=== PATIENT | female | born 1980 | race Caucasian/White ===

== ENCOUNTER 2022-01-10 11:15 | Emergency (ER) | payer BC, SELFPAY ==
--- NOTE | ~2022-01-10 | XR_ITS ---
EXAMINATION: XR elbow RT min 3V DATE: 01/10/2022 11:54 INDICATION: Right elbow injury and pain. TECHNIQUE: 4 views of right elbow were obtained. COMPARISON: None. FINDINGS: Bone alignment is normal. No fracture. Joint spaces are well maintained. There is no elbow joint effusion. IMPRESSION: 1. Normal right elbow. Reviewed, dictated and finalized at location A. RON[facility] HE[facility] PHYSICIAN IMPRESSION: 1. Normal right elbow.
[2022-01-10 11:26] VITALS: BP 135/93; PULSE 75; RESP 18; TEMP 36.9; O2SAT 100
--- NOTE | 2022-01-10 13:11 | ED.UPPEXIN ---
HPI - Extremity Injury (Upper) General Chief Complaint: Extremity Injury, Upper Stated Complaint: elbow injury Time Seen by Provider: 01/10/22 11:37 Source: patient Mode of arrival: ambulatory Limitations: no limitations History of Present Illness HPI narrative: This is a 41 year old female that presents to the ER for right elbow injury sustained a couple of weeks ago. Reports she felt pain in the elbow after bowling. Reports then a couple of days after that she hit her elbow on a metal door. Since she has had pain worse with movement and relieved with rest. Reports decreased range of motion due to pain. Denies numbness. Related Data Allergies Allergy/AdvReac Type Severity Reaction Status Date / Time aspirin AdvReac Unknown Verified 01/10/22 11:30 NSAIDS (Non-Steroidal AdvReac Unknown Verified 01/10/22 11:30 Anti-Inflamma Review of Systems Review of Systems: CONSTITUTIONAL: Denies fever MUSCULOSKELETAL: Reports joint pain, and myalgia. NEUROLOGIC: Denies numbness, or weakness. All systems reviewed & are unremarkable except as noted in HPI and below PMFSH Past Medical History Medical History (Updated 01/10/22 @ 13:26 by Melissa Sotelo PA-C) History of depression History of IBS History of migraine Social History Social History (Updated 01/10/22 @ 13:25 by Melissa Sotelo PA-C) Substance use: never Exam Narrative: GENERAL: Well-appearing, well-nourished, and in no acute distress. HEAD: Normocephalic, atraumatic. EYES: EOMI. EXTREMITIES: Normal range of motion. No edema, erythema or obvious deformity. Normal radial pulses. Normal strength in the right upper extremity SKIN: Warm, dry, no rash. NEURO: No focal deficits. Alert and oriented x3. PSYCH: Normal mood and affect Course Vital Signs Vital signs: Vital Signs Temperature 98.5 F 01/10/22 11:26 Pulse Rate 75 01/10/22 11:26 Respiratory Rate 18 01/10/22 11:26 Blood Pressure 135/93 H 01/10/22 11:26 Pulse Oximetry 100 01/10/22 11:26 Temperature 98.5 F 01/10/22 11:26 Pulse Rate 75 01/10/22 11:26 Respiratory Rate 18 01/10/22 11:26 Blood Pressure 135/93 H 01/10/22 11:26 Pulse Oximetry 100 01/10/22 11:26 MDM - Extremity Injury (Upper) MDM Narrative Medical decision making narrative: Patient sent to the emergency department for right elbow pain after an injury a couple weeks ago. She is afebrile and nontoxic-appearing. No erythema, edema or warmth of the arm. She is neurovascularly intact. Right elbow x-ray is normal. Patient was updated on case findings. Placed in a sling for comfort. Instructed to rest, ice and take [id number] pain medication as needed. She is to follow-up with her primary care doctor. She was given warnings to return to the ER Imaging Data Radiologist's impression: ITS Impressions Elbow X-Ray 01/10/22 12:06 IMPRESSION: 1. Normal right elbow. Critical Care Time Critical Care Time Critical Care Time: No Discharge Plan Discharge Clinical Impression: Elbow pain, right Patient Disposition: Home, Self-Care Condition: Stable Instructions: Elbow Sprain (ED) Additional Instructions: Return to the ER if you experience fever, redness and swelling of your arm, weakness, numbness, or any other symptoms that are concerning to you Rest, use ice/heat, take Tylenol as needed for pain as well as muscle relaxer (Flexeril) as needed for pain. Muscle relaxers can make you drowsy, do not drive if you take this Follow up with your primary care doctor Prescriptions: New cyclobenzaprine 10 mg tablet 10 mg PO TID PRN (Reason: muscle spasm) Qty: 10 RF: 0 Follow-up/Referrals: Padilla,MD Zelaya ([place]) [Primary Care Provider] - 3 Days Stand Alone Forms: Work/School Release IP
[2022-01-10 13:49] VITALS: BP 136/89; PULSE 76; RESP 12; TEMP 36.2; O2SAT 97
[2022-01-10 13:52] VITALS: BP 136/89; PULSE 72; RESP 12; TEMP 36.2; O2SAT 97
== END 2022-01-10 13:55 | disposition home or self-care (01) ==
PROVIDERS: Emergency Provider Emergency Medicine; PCP Internal Medicine
DX: S59.901A Unspecified injury of right elbow, initial encounter (principal); K58.9 Irritable bowel syndrome, unspecified; W22.8XXA Striking against or struck by other objects, initial encounter
CPT/HCPCS: 73080; 99283; A4565

== ENCOUNTER → 2022-02-07 13:05 | Outpatient (CLI) | payer BC, SELFPAY ==
--- NOTE | ~2022-02-07 | MR_ITS ---
EXAMINATION: MR elbow RT wo con DATE: 02/07/2022 13:51 INDICATION: Right elbow pain TECHNIQUE: Magnetic resonance imaging (MRI) of the right elbow was performed without intravenous cont rast. Sequences included coronal, axial, and sagittal PD-weighted FS FSE and coronal, axial, and sagi ttal PD-weighted FSE. COMPARISON: None FINDINGS: Osseous/other: Normal alignment. Normal marrow signal with no marrow edema, fracture, osteochondral lesion or abnor mal marrow replacing process. Mild nonuniform partial-thickness cartilage loss with smooth chondral s urface along the radial head. Small region of partial-thickness chondral fissuring along the ridge at the junction of the articular surfaces of the trochlea and capitellum. Tendons: Triceps, biceps brachii and brachialis tendons are normal. Common flexor tendon wad is normal. Mild tendinopathy and partial tear at the lateral epicondylar origin of the common extensor tendon wad. Th e fluid signal intensity tear defect measures approximately 5 x 4 mm. Ligaments: The medial and lateral collateral ligament complexes are normal. Cubital tunnel: Normal variant small ankle is at the trochlear is . Cubital tunnel is otherwise unremarkable with nor mal signal and caliber of the ulnar nerve and with no impinging osteophytes. Fluid: Physiologic amount of fluid the elbow joint. IMPRESSION: 1. Mild tendinopathy and partial tear at the lateral epicondylar origin of the common extensor tendon wad. 2. Mild osteoarthritis at the right elbow. Reviewed, dictated and finalized at location A.
== END ==
DX: M19.021 Primary osteoarthritis, right elbow (principal)
CPT/HCPCS: 73221